=== PATIENT | female | born 1935 | race Caucasian/White ===

== ENCOUNTER 2016-11-08 21:21 | Emergency (ER) | payer MEDICARE, OTHER ==
[~2016-11-08 21:21] MED LIST: ASPIRIN EC81 MG PO; ASPIRIN81 MG PO; AZITHROMYCIN250 MG PO; CALCIUM 600 +1 EAC5 PO; CARAFATE1 GM PO; CEFDINIR300 MG PO; CLARINEX5 MG PO; CLARITIN10 MG PO; DETROL LA4 MG PO; DEXILANT60 MG PO; FLORASTOR250 MG PO; FOLIC ACID1 MG PO; LEVAQUIN750 MG PO; LIPITOR40 MG PO; MEGACE40 MG PO; MIRALAX510 GM PO; MUCINEX 600MG600 MG PO; PERCOCET 10-321 EACH PO; PLAVIX75 MG PO; PREVACID30 MG PO; SENNA S TABLET1 EACH PO; SINGULAIR10 MG PO; TOPROL XL 50 MG50 MG PO; TRAZODONE 50MG50 MG PO; ZOFRAN4 MG PO
[2016-11-08 21:44] LABS: BASOPHIL 0.2 % (0-2); EOSINOPHIL 1.4 % (0-7); HCT 34.3 % (37.0-47.0); HGB 11.8 g/dl (12.5-16.0); LYMPHOCYTE 26.1 % (15-48); MCH 32.2 pg (25.0-31.0); MCHC 34.4 g/dL (32.0-36.0); MCV 93.5 fL (78.0-100.0); MPV 9.9 fL (6.0-9.5); NEUTROPHIL 64.3 % (41-80); PLT 167 K/uL (150-400); RBC 3.67 M/uL (4.20-5.40); RDW 12.9 % (11.5-14.0); WBC 8.4 K/uL (4.0-10.5)
[2016-11-08 21:55] LABS: INR 1.07 (0.9-1.2); PROTHROMBIN TIME 13.5 SECONDS (11.7-14.0); PTT 29.9 SECONDS (23.2-31.4)
[2016-11-08 21:56] LABS: BILIRUBIN NEGATIVE (NEGATIVE); BLOOD TRACE-INTACT Ery/uL (NEGATIVE); CLARITY CLEAR (CLEAR); COLOR YELLOW (YELLOW); GLUCOSE (U) NORMAL (NORMAL); KETONE (U) NEGATIVE (NEGATIVE); LEUKOCYTES NEGATIVE Leu/uL (NEGATIVE); NITRITE NEGATIVE (NEGATIVE); PROTEIN NEGATIVE (NEGATIVE); UROBILINOGEN 0.2 mg/dL (0.2-1.0)
[2016-11-08 22:00] LABS: URINARY RBC RARE
[2016-11-08 22:16] LABS: CREATININE 0.9 mg/dL (0.5-1.0); POTASSIUM 3.9 mmol/L (3.5-5.1)
[2016-11-08 22:17] LABS: ALBUMIN 4.4 g/dL (3.4-4.8); BILIRUBIN - TOTAL 0.5 mg/dL (0.1-1.0); GLOBULIN (CALCULATION) 2.1 g/dL (2.2-4.2); TOTAL PROTEIN 6.5 g/dL (6.4-8.3)
[2016-11-08 22:18] LABS: CKMB 1.02 ng/mL (0.97-4.94); LACTIC ACID 0.8 mmol/L (0.5-2.2); MYOGLOBIN 45 ng/mL (26-65); TROPONIN T < 0.010 ng/mL
== END 2016-11-08 23:30 | disposition home or self-care (01) ==
LOC: FER 21:21
PROVIDERS: Emergency Medicine
DX: F03.90 Unspecified dementia, unspecified severity, without behavioral disturbance, psychotic disturbance, mood disturbance, and anxiety (principal); Z79.899 Other long term (current) drug therapy
CPT/HCPCS: 36415; 70450; 71010; 80053; 80061; 81001; 82550; 82553; 83605; 83874; 84484; 85025; 85610; 85730; 93005

== ENCOUNTER 2016-12-22 15:28 | Inpatient (IN) | payer MEDICARE, OTHER ==
[~2016-12-22] VITALS: Ht 144.8 cm; Wt 51.7 kg
[2016-12-22 16:40] LABS: BASOPHIL 0.2 % (0-2); HCT 29.3 % (37.0-47.0); HGB 9.3 g/dl (12.5-16.0); LYMPHOCYTE 16.4 % (15-48); MCH 32.5 pg (25.0-31.0); MCHC 31.7 g/dL (32.0-36.0); MCV 102.4 fL (78.0-100.0); MONOCYTE 5.9 % (0-12); MPV 10.2 fL (6.0-9.5); NEUTROPHIL 76.5 % (41-80); PLT 263 K/uL (150-400); RBC 2.86 M/uL (4.20-5.40); RDW 12.8 % (11.5-14.0)
[2016-12-22 16:42] LABS: BILIRUBIN NEGATIVE (NEGATIVE); BLOOD 1+ Ery/uL (NEGATIVE); CLARITY CLOUDY (CLEAR); COLOR YELLOW (YELLOW); GLUCOSE (U) NORMAL (NORMAL); KETONE (U) NEGATIVE (NEGATIVE); LEUKOCYTES 2+ Leu/uL (NEGATIVE); NITRITE NEGATIVE (NEGATIVE); PROTEIN TRACE (LOW) mg/dL (NEGATIVE); SPECIFIC GRAVITY 1.015 (1.001-1.030); UROBILINOGEN 0.2 mg/dL (0.2-1.0)
[2016-12-22 16:47] LABS: BACTERIA 4+; URINARY WBC 20-50
[2016-12-22 16:52] LABS: AMPHETAMINES NEGATIVE (NEGATIVE); BARBITURATES NEGATIVE (NEGATIVE); BENZODIAZEPINES NEGATIVE (NEGATIVE); COCAINE NEGATIVE (NEGATIVE); MARIJUANA (THC) NEGATIVE (NEGATIVE); TRICYCLIC ANTIDEPRESSANT NEGATIVE (NEGATIVE)
[2016-12-22 16:53] LABS: METHADONE NEGATIVE (NEGATIVE)
[2016-12-22 17:01] LABS: INR 0.96 (0.9-1.2); PROTHROMBIN TIME 12.4 SECONDS (11.7-14.0)
[2016-12-22 17:10] LABS: TROPONIN T < 0.010 ng/mL
[2016-12-22 17:12] LABS: ALBUMIN 4.3 g/dL (3.4-4.8); BILIRUBIN - TOTAL 0.6 mg/dL (0.1-1.0); CREATININE 2.2 mg/dL (0.5-1.0); GLOBULIN (CALCULATION) 2.8 g/dL (2.2-4.2); MAGNESIUM 2.76 mg/dL (1.40-2.10); PHOSPHORUS 5.2 mg/dL (2.7-4.5); POTASSIUM 5.5 mmol/L (3.5-5.1); TOTAL PROTEIN 7.1 g/dL (6.4-8.3)
[2016-12-22 17:22] LABS: FT4 (FREE T4) 1.15 ng/dL (0.93-1.70); TSH (THYROID STIM HORMONE) 1.58 uIU/mL (0.270-4.200)
[2016-12-22 17:33] LABS: PRO-BNP 556 pg/mL (0-450)
[2016-12-23 04:50] LABS: BASOPHIL 0.2 % (0-2); EOSINOPHIL 1.2 % (0-7); HCT 27.7 % (37.0-47.0); HGB 8.9 g/dl (12.5-16.0); LYMPHOCYTE 24.5 % (15-48); MCH 32.6 pg (25.0-31.0); MCHC 32.1 g/dL (32.0-36.0); MCV 101.5 fL (78.0-100.0); MONOCYTE 8.5 % (0-12); MPV 9.7 fL (6.0-9.5); NEUTROPHIL 65.6 % (41-80); PLT 225 K/uL (150-400); RBC 2.73 M/uL (4.20-5.40); RDW 12.7 % (11.5-14.0)
[2016-12-23 05:15] LABS: CREATININE 1.9 mg/dL (0.5-1.0); POTASSIUM 4.7 mmol/L (3.5-5.1)
[2016-12-23 10:48] LABS: IRON 40 ug/dL (44-196); IRON % SATURATION 19 %SAT (20-50); TIBC (TOTAL IRON + UIBC) 212 U/L (228-428); UIBC 172 ug/dL (112-346)
[2016-12-24 06:02] LABS: BASOPHIL 0.3 % (0-2); HCT 24.6 % (37.0-47.0); HGB 7.9 g/dl (12.5-16.0); LYMPHOCYTE 35.9 % (15-48); MCH 33.1 pg (25.0-31.0); MCHC 32.1 g/dL (32.0-36.0); MCV 102.9 fL (78.0-100.0); MONOCYTE 7.6 % (0-12); MPV 9.5 fL (6.0-9.5); NEUTROPHIL 54.2 % (41-80); PLT 218 K/uL (150-400); RBC 2.39 M/uL (4.20-5.40); RDW 12.5 % (11.5-14.0); WBC 6.2 K/uL (4.0-10.5)
[2016-12-24 06:22] LABS: CREATININE 1.3 mg/dL (0.5-1.0); POTASSIUM 4.2 mmol/L (3.5-5.1)
[2016-12-25 05:25] LABS: BASOPHIL 0.2 % (0-2); EOSINOPHIL 1.6 % (0-7); HCT 22.2 % (37.0-47.0); HGB 7.1 g/dl (12.5-16.0); LYMPHOCYTE 43.1 % (15-48); MCH 32.4 pg (25.0-31.0); MCV 101.4 fL (78.0-100.0); MONOCYTE 6.9 % (0-12); MPV 9.4 fL (6.0-9.5); NEUTROPHIL 48.2 % (41-80); PLT 201 K/uL (150-400); RBC 2.19 M/uL (4.20-5.40); RDW 12.2 % (11.5-14.0)
[2016-12-25 05:49] LABS: CREATININE 1.2 mg/dL (0.5-1.0); MAGNESIUM 1.79 mg/dL (1.40-2.10)
== END 2016-12-25 14:53 | disposition home health service (06) | DRG 682 ==
LOC: FER 15:28 → FMS 19:09
PROVIDERS: Hospitalist; Internal Medicine; ADMIT Internal Medicine
PROC: 30233N1 Transfusion of Nonautologous Red Blood Cells into Peripheral Vein, Percutaneous Approach (ICD-10-PCS; principal; 2016-12-25)
PROC: 3E0234Z Introduction of Serum, Toxoid and Vaccine into Muscle, Percutaneous Approach (ICD-10-PCS; 2016-12-25)
DX: N17.9 Acute kidney failure, unspecified (principal); G93.41 Metabolic encephalopathy; D51.0 Vitamin B12 deficiency anemia due to intrinsic factor deficiency; G30.9 Alzheimer's disease, unspecified; N30.00 Acute cystitis without hematuria; R13.10 Dysphagia, unspecified; F02.80 Dementia in other diseases classified elsewhere, unspecified severity, without behavioral disturbance, psychotic disturbance, mood disturbance, and anxiety; Z95.1 Presence of aortocoronary bypass graft; E86.0 Dehydration; D50.9 Iron deficiency anemia, unspecified; I25.10 Atherosclerotic heart disease of native coronary artery without angina pectoris; Z95.5 Presence of coronary angioplasty implant and graft; M19.90 Unspecified osteoarthritis, unspecified site; G89.4 Chronic pain syndrome; M54.9 Dorsalgia, unspecified; K21.9 Gastro-esophageal reflux disease without esophagitis; E78.5 Hyperlipidemia, unspecified; I10 Essential (primary) hypertension; Z79.82 Long term (current) use of aspirin; Z90.710 Acquired absence of both cervix and uterus; Z79.01 Long term (current) use of anticoagulants; Z23 Encounter for immunization
CPT/HCPCS: 36415; 70450; 71010; 76770; 80048; 80053; 80305; 81001; 82607; 82728; 83540; 83550; 83605; 83735; 83880; 84100; 84439; 84443; 84484; 85025; 85610; 85730; 86850; 86900; 86901; 86922; 87040; 87076; 87088; 87186; 90732; 93005; 94010; G0009; G0378; J1644; J2916; J3420; P9016